=== PATIENT | female | born 1970 | race Caucasian/White ===

== ENCOUNTER 2017-11-01 16:49 | Outpatient (CLI) | payer OTHER ==
--- NOTE | 2017-11-01 17:43 | RAD ---
FRONTAL CHEST RADIOGRAPH 11/01/17 PROVIDED CLINICAL HISTORY: Positive TB test. FINDINGS: The cardiac and mediastinal silhouette is within normal limits. Lungs appear clear. No pleural fluid or pneumothorax apparent. IMPRESSION: Normal frontal chest radiograph. POS: [facility]
== END 2017-11-01 16:50 | disposition home or self-care (01) ==
LOC: SCSRAD 16:49
PROVIDERS: ATTEND Family Medicine
DX: R76.12 Nonspecific reaction to cell mediated immunity measurement of gamma interferon antigen response without active tuberculosis (principal)